=== PATIENT | female | born 1950 | race Two or more races ===

== ENCOUNTER 2017-01-16 05:33 | Day surgery (SDC) | payer OTHER ==
[~2017-01-16] VITALS: Ht 152.4 cm; Wt 79.1 kg
[2017-01-16 06:26] VITALS: Ht 152.4 cm; Wt 79.1 kg
[2017-01-16] MEDS ORDERED: ASPI-664 PO (06:35)
[2017-01-16] MEDS ORDERED: MEVA40 PO (06:35)
[2017-01-16] MEDS ORDERED: LOSA25TA5 PO (06:35)
[2017-01-16] MEDS ORDERED: SITA1TBM4 PO (06:35)
[2017-01-16] MEDS ORDERED: OMEP40CA6 PO (06:35)
[2017-01-16 06:52] VITALS: BP 167/73; PULSE 68; RESP 20
[2017-01-16] MEDS ORDERED: FENTAnyl 50 MCG/ML VIAL ONE (07:49)
[2017-01-16] MEDS ORDERED: MIDAZOLAM 1 MG/ML 2 ML INJ ONE (07:50)
[2017-01-16 08:07] VITALS: BP 131/69; PULSE 74; RESP 15
--- NOTE | 2017-01-16 10:21 | CONS ---
DATE OF ADMISSION: 01/16/2017 DATE OF CONSULTATION: TYPE OF CONSULTATION: Preoperative Gastroenterology Dear Dr. Boyd: I thank you very much for this kind referral. HISTORY OF PRESENT ILLNESS: Ms. Navneet Ma is a 66-year-old female patient who has been referr ed to me for further evaluation of abdominal pain and change in the bowel habit. The patient states she is having epigastric pain, which is not responding to therapy with omeprazole. There is no def inite past history of peptic ulcer disease. Her appetite has been good, and she is not losing any w eight. The patient has been taking baby aspirin a day. There is no history of gallstones. She conklin s not have any fever, chills or jaundice. There is no history of liver disease. The patient also c omplains of change in the bowel habit with constipation. There is no past history of colon neoplasm . The patient never had a screening colonoscopy. She is hypertensive. She has diabetes. There is no history of heart disease or lung problem. There is no history of kidney disease. She has got h yperlipidemia. SOCIAL HISTORY: She is a nonsmoker. She does not abuse alcohol. FAMILY HISTORY: Negative for gastrointestinal tract neoplasm. ALLERGIES: THERE IS NO HISTORY OF SIGNIFICANT DRUG ALLERGY. MEDICATIONS: 1. Omeprazole 40 mg. 2. Janumet. 3. Glimepiride. 4. Losartan. 5. Lovastatin. 6. Aspirin 81 mg. PHYSICAL EXAMINATION VITAL SIGNS: She is 5 feet tall and she weighs 175 pounds. HEART: Examination of the heart reveals normal first and second heart sounds. LUNGS: Clear. ABDOMEN: Soft without any distention. Liver and spleen are not palpable. There are no masses. Th ere is no focal tenderness. Normal bowel sounds are heard. CENTRAL NERVOUS SYSTEM: Does not reveal any focal neurological deficit. IMPRESSION: 1. Upper abdominal pain, not responding to therapy with omeprazole. 2. The patient has been taking baby aspirin a day. 3. Change in the bowel habit with constipation. 4. The patient never had a screening colonoscopy. 5. Hypertension. 6. Diabetes mellitus. 7. Hyperlipidemia. PLAN: 1. Continue omeprazole. 2. Linzess 145 mcg p.o. daily a.m. for constipation. 3. Abdominal ultrasound for further evaluation of upper abdominal pain. 4. Endoscopic examination to rule out peptic ulcer disease and gastric neoplasm. 5. Screening colonoscopy. The procedures and possible complications were well explained to the patient. She understands and c onsents to the procedures. I thank you once again. With warmest personal regards, Dictated By: TWYLA AYON/MIRI Conf#: [id number] DID#: [id number] CC: TWYLA VALLES MD;*EndCC*
--- NOTE | 2017-01-16 10:57 | GILP ---
DATE OF PROCEDURE: NAME OF PROCEDURES: Esophagogastroduodenoscopy and biopsy. SURGEON: Twyla Calvo MD PREOPERATIVE DIAGNOSIS: Abdominal pain. POSTOPERATIVE DIAGNOSES 1. Gastritis with erosions. 2. Gastric mucosal biopsies were taken for Helicobacter pylori test. INDICATION FOR THE PROCEDURE: Ms. Ashley Ma is a 66-year-old female patient who had upper abd ominal pain, not responding to therapy. Patient was scheduled for endoscopic examination for furthe r evaluation. The procedure and possible complications are well explained to the patient, she understood and conse nted to the procedure. DESCRIPTION OF PROCEDURE: Under the influence of fentanyl and Versed, the gastroscope was carefully introduced into the esophagus and under direct vision, it was advanced to the stomach and through t he pylorus into the duodenal bulb and descending duodenum. FINDINGS: ESOPHAGUS: The mucosa was normal. STOMACH: The patient had gastritis with erosions. Gastric mucosal biopsies were taken for H. pylori test. DUODENUM: Normal. She tolerated the procedure very well and there was no complication from the procedure. At the end of the procedures, she was awake with stable vital signs and she was discharged home to the care of her family. IMPRESSION: 1. Gastritis with erosions. 2. Gastric mucosal biopsies were taken for Helicobacter pylori test. PLAN: 1. Continue omeprazole. 2. Add Bentyl 10 mg p.o. t.i.d. p.r.n. for pain. 3. Await abdominal ultrasound report. Dictated By: TWYLA AYON/MIRI Conf#: [id number] DID#: [id number]
== END 2017-01-16 16:38 | disposition home or self-care (01) ==
LOC: GIL 05:33
PROVIDERS: ATTEND Internal Medicine Gastroenterology
DX: K29.60 Other gastritis without bleeding (principal); I10 Essential (primary) hypertension; E11.9 Type 2 diabetes mellitus without complications
CPT/HCPCS: 43239; 82962; 87081; J2250; J3010; Z7610

== ENCOUNTER 2017-05-04 06:16 | Day surgery (SDC) | payer OTHER ==
[~2017-05-04] VITALS: Ht 152.4 cm; Wt 77.5 kg
[~2017-05-04 06:16] MED LIST: ACET500C5 PO; ASPI-664 PO; CETI10CA PO; GABA300C16 PO; HYDR-3011 PO; IBUP-1542 PO; IBUP400T22 PO; LOSA25TA5 PO; MEVA40 PO; NAPR-260 PO; OMEP20CA16 PO; OMEP40CA6 PO; SITA1TAB PO; SITA1TBM4 PO; TRAM50TA2 PO; UDROBDM PO
[2017-05-04 08:10] VITALS: Ht 152.4 cm; Wt 77.5 kg
--- NOTE | 2017-05-04 09:17 | OPPN ---
Date/Time of Note Date/Time of Note DATE: 05/04/17 TIME: 09:15 Operative Report Preoperative Diagnosis Screening Postoperative Diagnosis Internal hemorrhoids No colon neoplasm was identified Operation/Procedure Performed Colonoscopy Provider: TWYLA VALLES MD Anesthesia Type: moderate sedation Estimated blood loss: none Transfusion Required: no Specimen: none Grafts/Implants: none Complications: no TWYLA VALLES MD May 04, 2017 09:17
[2017-05-04] MEDS ORDERED: FENTAnyl 50 MCG/ML VIAL ONE (09:36)
[2017-05-04] MEDS ORDERED: MIDAZOLAM 1 MG/ML 2 ML INJ ONE ×2 (09:37)
[2017-05-04 09:40] VITALS: BP 154/79; RESP 14
--- NOTE | 2017-05-04 09:43 | GILP ---
DATE OF PROCEDURE: 05/04/2017 PROCEDURE PERFORMED: Colonoscopy. SURGEON: Helder Calvo MD. PREOPERATIVE DIAGNOSIS: Screening colonoscopy. POSTOPERATIVE DIAGNOSES: 1. Colonoscopy all the way to the cecum. 2. Internal hemorrhoids. 3. No colon neoplasm was identified. INDICATION: Ms. Ashley Ma is a 66-year-old female patient who was scheduled for screening colonoscopy. The procedure and possible complications were well explained to the patient. The patient understood and consented to the procedure. DESCRIPTION OF PROCEDURE: Under influence of fentanyl and Versed, the colonoscope was carefully introduced in the rectum, and under direct vision, it was advanced all the way to the cecum. FINDINGS: The patient had internal hemorrhoids. No colon neoplasm was identified. She tolerated the procedure very well. There was no complication from the procedure. At the end of procedure, she was awake with stable vital signs and she was discharged home in the care of her family. IMPRESSION: 1. Colonoscopy all the way to the cecum. 2. Internal hemorrhoids. 3. No colon neoplasm was identified. PLAN: Next screening colonoscopy in 10 years. Dictated By: MD NANY Rust/luiz/ganesh /Document#: [id number]
== END 2017-05-04 11:00 | disposition home or self-care (01) ==
LOC: GIL 06:16
PROVIDERS: ATTEND Internal Medicine Gastroenterology
DX: Z12.11 Encounter for screening for malignant neoplasm of colon (principal); K64.8 Other hemorrhoids; I10 Essential (primary) hypertension; E11.9 Type 2 diabetes mellitus without complications
CPT/HCPCS: 45378; 82962; J2250; J3010; Z7610